=== PATIENT | female | born 1950 | race American Indian/Alaskan Native ===

== ENCOUNTER 2020-12-18 16:41 | Emergency (ER) | payer MEDICARE ==
--- NOTE | 2020-12-18 17:03 | Emergency Department Report ---
ED Medical Clearance [facility] - General Chief complaint: Medical Clearance Stated complaint: HBP CHECK Time Seen by Provider: 12/18/20 16:52 Source: patient Mode of arrival: Ambulatory Home medications: Previous Rx's Medication Instructions Recorded Last Taken Type Losartan Potassium 50 mg PO QDAY #14 tablet 12/18/20 Unknown Rx Allergies/Adverse reactions: Allergies Allergy/AdvReac Type Severity Reaction Status Date / Time No Known Allergies Allergy Unverified 12/18/20 16:44 ED Review of Systems ROS: Stated complaint: HBP CHECK Other details as noted in HPI ED Past Medical Hx - Past Medical History Previous Medical History?: Yes Hx Hypertension: Yes Hx Diabetes: Yes Hx of Cancer: Yes (uterine) - Surgical History Past Surgical History?: Yes Additional Surgical History: x 2, total hysterectomy for caner of uterus - Medications Home Medications: Home Medications Medication Instructions Recorded Confirmed Last Taken Type Losartan Potassium 50 mg PO QDAY #14 tablet 12/18/20 Unknown Rx ED Physical Exam - General Limitations: No Limitations ED Disposition Clinical Impression: Medicine refill, HTN (hypertension) Disposition: 01 HOME / SELF CARE / HOMELESS Is pt being admited?: No Does the pt Need Aspirin: No Condition: Stable Instructions: Hypertension (ED), Hypertension, Adult, [id number] Additional Instructions: Take medication as prescribed. Prescriptions: Losartan Potassium 50 mg PO QDAY #14 tablet Referrals: Your,Provider [Other] - 3-5 Days Time of Disposition: 17:07
[2020-12-18 17:31] VITALS: BP 135/72
--- NOTE | 2020-12-18 19:20 | Emergency Department Report ---
ED Medical Clearance HPI - General Chief complaint: Medical Clearance Stated complaint: HBP CHECK Time Seen by Provider: 12/18/20 16:52 Source: patient Mode of arrival: Ambulatory - History of Present Illness Initial comments: 70-year-old -Northern [place] female presents to the emergency room stating she needs a refill on her blood pressure medication. Patient reports that she had to leave [place] emergently as she was going to a here and [place] area. Patient states that she is also leaving to go out of the country and realized that she did not take her blood pressure medication. Patient states that she takes losartan potassium 50 mg daily. She states that she has some at home but forgot to pack it. She reports that she call [facility] to see if they are able to give her 10 days dose and they state that they will need a refill prescription. Alledged Intoxication: No Compliant with Home Medications: No Home medications: Previous Rx's Medication Instructions Recorded Last Taken Type Losartan Potassium 50 mg PO QDAY #14 tablet 12/18/20 Unknown Rx Allergies/Adverse reactions: Allergies Allergy/AdvReac Type Severity Reaction Status Date / Time No Known Allergies Allergy Unverified 12/18/20 16:44 ED Review of Systems ROS: Stated complaint: HBP CHECK Other details as noted in HPI Comment: All other systems reviewed and negative ED Past Medical Hx - Past Medical History Previous Medical History?: Yes Hx Hypertension: Yes Hx Diabetes: Yes Hx of Cancer: Yes (uterine) - Surgical History Past Surgical History?: Yes Additional Surgical History: x 2, total hysterectomy for caner of uterus - Medications Home Medications: Home Medications Medication Instructions Recorded Confirmed Last Taken Type Losartan Potassium 50 mg PO QDAY #14 tablet 12/18/20 Unknown Rx ED Physical Exam - General Limitations: No Limitations General appearance: alert, in no apparent distress - Head Head exam: Present: atraumatic, normocephalic - Eye Eye exam: Present: normal appearance - ENT ENT exam: Present: normal external ear exam - Neck Neck exam: Present: normal inspection, full ROM - Respiratory Respiratory exam: Absent: respiratory distress, accessory muscle use - Cardiovascular Cardiovascular Exam: Present: regular rate - Extremities Exam Extremities exam: Present: normal inspection - Back Exam Back exam: Present: normal inspection - Neurological Exam Neurological exam: Present: alert, oriented X3, normal gait - Psychiatric Psychiatric exam: Present: normal affect, normal mood - Skin Skin exam: Present: warm, dry, intact, normal color. Absent: rash ED Course Vital Signs 12/18/20 17:29 Pulse Rate 82 Respiratory 16 Rate Blood Pressure 135/72 [Right] O2 Sat by Pulse 99 Oximetry ED Medical Decision Making - Medical Decision Making 70-year-old -[place] female presents to the emergency room stating she needs a refill on her blood pressure medication. Patient reports that she had to leave [place] emergently as she was going to a here and [place] area. Patient states that she is also leaving to go out of the country and realized that she did not take her blood pressure medication. Patient states that she takes losartan potassium 50 mg daily. She states that she has some at home but forgot to pack it. She reports that she call [facility] to see if they are able to give her 10 days dose and they state that they will need a refill prescription. Refill for losartan 50 mg p.o. daily 2 weeks dispense. ED Disposition Clinical Impression: Medicine refill, HTN (hypertension) Disposition: HOME / SELF CARE / HOMELESS Is pt being admited?: No Does the pt Need Aspirin: No Condition: Stable Instructions: Hypertension, Adult, [id number], Hypertension (ED) Additional Instructions: Take medication as prescribed. Prescriptions: Losartan Potassium 50 mg PO QDAY #14 tablet Referrals: Your,Provider [Other] - 3-5 Days
== END 2020-12-18 17:29 | disposition home or self-care (01) ==
LOC: ED 16:41
DX: I10 Essential (primary) hypertension (principal); Z76.0 Encounter for issue of repeat prescription; E11.8 Type 2 diabetes mellitus with unspecified complications; Z85.42 Personal history of malignant neoplasm of other parts of uterus
CPT/HCPCS: 99281